=== PATIENT | female | born 1960 | race African-American/Black ===

== ENCOUNTER 2016-09-10 12:53 | Emergency (ER) | payer OTHER ==
[~2016-09-10] VITALS: Ht 170.2 cm; Wt 70.3 kg
[2016-09-10] MEDS ORDERED: BP MED (13:07)
[2016-09-10 16:05] VITALS: BP 115/81
[2016-09-10] MEDS ORDERED: TRAMADOL 50 MG50 MG PO (16:22)
[2016-09-10] MEDS ORDERED: NAPROSYN500 MG PO (16:22)
== END 2016-09-10 17:48 | disposition home or self-care (01) ==
LOC: ER 12:53
DX: S46.911A Strain of unspecified muscle, fascia and tendon at shoulder and upper arm level, right arm, initial encounter (principal); S70.12XA Contusion of left thigh, initial encounter; S80.01XA Contusion of right knee, initial encounter; S00.93XA Contusion of unspecified part of head, initial encounter; J45.909 Unspecified asthma, uncomplicated; Z91.010 Allergy to peanuts; V49.9XXA Car occupant (driver) (passenger) injured in unspecified traffic accident, initial encounter; Y93.I9 Activity, other involving external motion; Y92.89 Other specified places as the place of occurrence of the external cause; Y99.8 Other external cause status